=== PATIENT | male | born 1995 | race Caucasian/White ===

== ENCOUNTER 2022-03-13 20:07 | Emergency (ER) | payer BC ==
[~2022-03-13] VITALS: Ht 170.2 cm; Wt 60.0 kg
[2022-03-13] MEDS ORDERED: PREDNISONE 20MG TABLET PO ONE (23:30)
[2022-03-13] MEDS ORDERED: B25 MT (23:35)
[2022-03-13] MEDS ORDERED: P20 MT (23:35)
[2022-03-14 00:14] VITALS: BP 121/73
== END 2022-03-13 23:30 | disposition left against medical advice (07) ==
LOC: ER 20:07
DX: L30.9 Dermatitis, unspecified (principal)
CPT/HCPCS: 99283; J7512